=== PATIENT | male | born 1940 | race African-American/Black ===

== ENCOUNTER 2017-06-27 17:59 | Emergency (ER) | payer OTHER ==
[~2017-06-27] VITALS: Ht 182.9 cm; Wt 80.3 kg
[2017-06-27 18:49] LABS: ABSOLUTE NEUTROPHILS 7.4 thou/uL (1.4-8.2); BASOPHILS 0.7 % (0.0-2.0); EOSINOPHILS 1.3 % (0.0-3.0); HEMATOCRIT 47.9 % (42.0-52.0); HEMOGLOBIN 16.6 gm/dL (14.0-18.0); LYMPHOCYTES 19.5 % (24.0-44.0); MCH 33.3 pg (26.0-34.0); MCHC 34.7 g/dL (28.0-37.0); MCV 96.1 fL (80.0-100.0); MONOCYTES 10.4 % (1.0-8.0); PLATELET COUNT 236 thou/uL (150-400); POLYS 68.1 % (36.0-66.0); RBC 4.99 mil/uL (4.50-6.00); RDW 14.1 % (10.5-14.5); WBC 10.9 thou/uL (4.0-11.0)
[2017-06-27 19:00] LABS: CALCIUM 9.7 mg/dL (8.5-10.1); CREATININE 1.1 mg/dL (0.7-1.3); POTASSIUM 3.8 mmol/L (3.5-5.1)
[2017-06-27 19:07] LABS: ALBUMIN 3.4 g/dL (3.4-5.0); DIRECT BILIRUBIN 0.1 mg/dL (<0.1-0.3); TOTAL BILIRUBIN 0.5 mg/dL (<0.1-1.0); TOTAL PROTEIN 7.1 g/dL (6.4-8.2)
[2017-06-27 19:29] LABS: URINE BILIRUBIN NEGATIVE (Negative); URINE BLOOD TRACE (Negative); URINE CLARITY CLEAR; URINE COLOR YELLOW; URINE GLUCOSE-RANDOM* NEGATIVE (Negative); URINE KETONES NEGATIVE (Negative); URINE LEUKOCYTES-REFLEX NEGATIVE (Negative); URINE NITRITE-REFLEX NEGATIVE (Negative); URINE PROTEIN (DIPSTICK) NEGATIVE (Negative)
[2017-06-27] MEDS ORDERED: ACETAMINOPHEN-1 EAC1 PO (19:33)
[2017-06-27] MEDS ORDERED: TYLENOL325 MG PO (19:33)
[2017-06-27] MEDS ORDERED: AMLODIPINE BESY10 MG PO (19:35)
[2017-06-27] MEDS ORDERED: LIPITOR10 MG PO (19:35)
[2017-06-27] MEDS ORDERED: VITAMINC500 PO (19:35)
[2017-06-27] MEDS ORDERED: TESSALON PERLE100 MG PO (19:36)
[2017-06-27] MEDS ORDERED: CARBIDOPA-LEVO1 EAC9 PO (19:36)
[2017-06-27] MEDS ORDERED: VITAMIN D1000 UNI1 PO (19:37)
[2017-06-27] MEDS ORDERED: ZYRTEC10 MG PO (19:37)
[2017-06-27] MEDS ORDERED: FLEXERIL PO (19:38)
[2017-06-27] MEDS ORDERED: DOCUSATE SODIU100 MG PO (19:40)
[2017-06-27] MEDS ORDERED: FOLIC ACID1 MG PO (19:40)
[2017-06-27] MEDS ORDERED: FLONASE 0.05%50 MCG NASAL (19:40)
[2017-06-27] MEDS ORDERED: GABAPENTIN 100100 MG PO (19:41)
[2017-06-27] MEDS ORDERED: LANTUS100 UNIT/M SUBQ (19:42)
[2017-06-27] MEDS ORDERED: HUMALOG100 UNIT/1 SUBQ (19:43)
[2017-06-27] MEDS ORDERED: LAMICTAL100 MG PO (19:44)
[2017-06-27] MEDS ORDERED: PROTONIX40 M1 PO (19:44)
[2017-06-27] MEDS ORDERED: ANTIVERT25 MG PO (19:44)
[2017-06-27] MEDS ORDERED: NICOTINE TRANSD14 M1 TRANSDERM (19:44)
[2017-06-27] MEDS ORDERED: FLOMAX0.4 MG PO (19:46)
[2017-06-27] MEDS ORDERED: SENOKOT8.6 MG PO (19:46)
[2017-06-27] MEDS ORDERED: PROPRANOLOL 20M20 M1 PO (19:46)
[2017-06-27] MEDS ORDERED: THERA1 EAC1 PO (19:47)
[2017-06-27] MEDS ORDERED: VITAMIN B-1100 M1 PO (19:47)
[2017-06-27] MEDS ORDERED: AMBIEN 5 MG TABL5 M1 PO (19:49)
[2017-06-27] MEDS ORDERED: VENLAFAXIN37.5 MG/1 PO (19:49)
[2017-06-27 22:08] VITALS: BP 118/79
== END 2017-06-27 22:11 ==
LOC: ER 17:59
PROVIDERS: Emergency Medicine
DX: J06.9 Acute upper respiratory infection, unspecified (principal); E78.00 Pure hypercholesterolemia, unspecified; E11.9 Type 2 diabetes mellitus without complications; I10 Essential (primary) hypertension; G20 Parkinson's disease; F17.210 Nicotine dependence, cigarettes, uncomplicated; Z86.73 Personal history of transient ischemic attack (TIA), and cerebral infarction without residual deficits; Z88.0 Allergy status to penicillin; Z88.8 Allergy status to other drugs, medicaments and biological substances

== ENCOUNTER 2017-07-03 19:28 | Inpatient (IN) | payer OTHER ==
[~2017-07-03] VITALS: Ht 152.4 cm; Wt 80.6 kg
--- NOTE | ~2017-07-03 | HC ---
[facility] [place] [address] CONSULTATION Name: UNRULY CORDOVA Room #: 359-P [facility] IN M.R.#: [id number] Admission: 07/03/17 Attend Phys: Miles Hernandez MD Discharge: Date of : 44 Report #: [id number] THIS REPORT FOR: //name// CC: Miles Hernandez [facility] Room 359, [facility]. Patient of Dr. Manuel. SUBJECTIVE: A 76-year-old white male admitted for hypoglycemia, hypothermia and hypokalemia. The patient has a 22-year history of diabetes that was treated orally with glipizide and metformin until approximately 3 weeks ago when he suffered a stroke. Since that time, he has been on sliding scale, lispro insulin as well as apparently 20 units of bedtime Glargine. The patient states control has been "poor" but there is limited information available since he has been in an extended care facility. There is no information on controlled diet or other diabetes parameters. The patient was admitted with hypoglycemia after being unable to take in calories. Insulin has been withdrawn and blood sugars have increased back up into the normal and above normal range. The patient is now being restarted on limited oral feeding as tolerated. Otherwise, there is no endocrine history available. CURRENT MEDICATIONS: Include atorvastatin, tamsulosin, fluticasone, multivitamins, aspirin, amlodipine, pantoprazole, gabapentin, lamotrigine, zolpidem, albuterol, acetaminophen, carbidopa, ondansetron and insulin, which has not yet been administered. The patient is currently receiving IV saline. OBJECTIVE: LABORATORY DATA: Glucose which was initially in the 30s is now increased to the most recent value of 214. Other lab is as per chart. PHYSICAL EXAMINATION: GENERAL: Well-nourished, well-developed 76-year-old white male in no acute distress. The patient is alert and oriented x 3. His speech is slightly slurred, but able to be understood. VITAL SIGNS: He is reported to be 6 feet in height, weight is as recorded. The patient is afebrile, heart rate 88 and regular, blood pressure 140/90. SKIN: Shows slightly decreased turgor. EYES: PERRL. CHEST: Clear. HEART: Regular rhythm without murmurs, rubs or gallops. ABDOMEN: Benign. Bowel sounds active. EXTREMITIES: Show no edema, cyanosis or clubbing. Peripheral pulses 2+ and equal bilaterally. ASSESSMENT: 1. Diabetes mellitus with recent hypoglycemia due to decreased caloric intake. [address] [address] CONSULTATION Name: UNRULY CORDOVA Room #: 359-P [facility] IN M.R.#: [id number] Admission: 07/03/17 Attend Phys: Miles Hernandez MD Discharge: Date of : 44 Report #: [id number] 2. Insulin resistance and hyperinsulinemia. PLAN: Will evaluate prior control with hemoglobin A1c and fructosamine and evaluate whether the patient is making endogenous insulin with C-peptide. Given that the patient was on oral therapy until several weeks ago, it is highly likely that he still makes sufficient endogenous insulin to be improved with addition of oral therapy, will then regulate therapy as intake returns to normal in an effort to stabilize glucose control into the appropriate range. Thank you very much for this consultation. I will continue to follow the patient with you for management of diabetes mellitus. <ELECTRONICALLY SIGNED> By: Neftali Lopez MD 07/04/17 1712 [id number] Neftali Lopez MD /nt
--- NOTE | ~2017-07-03 | EKG ---
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
[~2017-07-03 19:28] MED LIST: ACETAMINOPHEN-1 EAC1 PO; AMBIEN 5 MG TABL5 M1 PO; AMLODIPINE BESY10 MG PO; ANTIVERT25 MG PO; CARBIDOPA-LEVO1 EAC9 PO; DOCUSATE SODIU100 MG PO; FLEXERIL PO; FLOMAX0.4 MG PO; FLONASE 0.05%50 MCG NASAL; FOLIC ACID1 MG PO; GABAPENTIN 100100 MG PO; HUMALOG100 UNIT/1 SUBQ; LAMICTAL100 MG PO; LANTUS100 UNIT/M SUBQ; LIPITOR10 MG PO; NICOTINE TRANSD14 M1 TRANSDERM; PROPRANOLOL 20M20 M1 PO; PROTONIX40 M1 PO; SENOKOT8.6 MG PO; TESSALON PERLE100 MG PO; THERA1 EAC1 PO; TYLENOL325 MG PO; VENLAFAXIN37.5 MG/1 PO; VITAMIN B-1100 M1 PO; VITAMIN D1000 UNI1 PO; VITAMINC500 PO; ZYRTEC10 MG PO
[2017-07-03 19:30] VITALS: BP 135/91
[2017-07-03] MEDS ORDERED: ASPIR 8181 MG PER TUBE (20:00)
[2017-07-03] MEDS ORDERED: VITAMIN D31000 UNIT PER TUBE (20:02)
[2017-07-03 20:36] LABS: ABSOLUTE NEUTROPHILS 9.5 thou/uL (1.4-8.2); BASOPHILS 0.5 % (0.0-2.0); EOSINOPHILS 0.5 % (0.0-3.0); HEMATOCRIT 48.2 % (42.0-52.0); LYMPHOCYTES 9.2 % (24.0-44.0); MCH 32.7 pg (26.0-34.0); MCHC 33.3 g/dL (28.0-37.0); MCV 98.4 fL (80.0-100.0); MONOCYTES 6.9 % (1.0-8.0); PLATELET COUNT 136 thou/uL (150-400); POLYS 82.9 % (36.0-66.0); RDW 13.5 % (10.5-14.5); WBC 11.5 thou/uL (4.0-11.0)
[2017-07-03 20:46] LABS: CALCIUM 7.2 mg/dL (8.5-10.1); CREATININE 1.1 mg/dL (0.7-1.3); POTASSIUM 3.3 mmol/L (3.5-5.1)
[2017-07-03 21:30] LABS: URINE BILIRUBIN NEGATIVE (Negative); URINE BLOOD NEGATIVE (Negative); URINE CLARITY CLEAR; URINE COLOR YELLOW; URINE GLUCOSE-RANDOM* 2+ (Negative); URINE KETONES NEGATIVE (Negative); URINE LEUKOCYTES NEGATIVE (Negative); URINE NITRITE NEGATIVE (Negative); URINE PROTEIN (DIPSTICK) NEGATIVE (Negative); URINE SPECIFIC GRAVITY 1.015 (1.005-1.035)
[2017-07-03 21:37] VITALS: BP 158/87
[2017-07-03 21:57] VITALS: BP 120/74
[2017-07-04 00:10] VITALS: BP 143/87
[2017-07-04 01:44] LABS: HEMOGLOBIN 16.7 gm/dL (14.0-18.0); MCH 32.8 pg (26.0-34.0); MCHC 33.4 g/dL (28.0-37.0); MCV 98.1 fL (80.0-100.0); RBC 5.1 mil/uL (4.50-6.00); RDW 13.6 % (10.5-14.5); WBC 8.5 thou/uL (4.0-11.0)
[2017-07-04 01:47] LABS: CREATININE 1.3 mg/dL (0.7-1.3); POTASSIUM 4.1 mmol/L (3.5-5.1)
[2017-07-04 01:59] LABS: CALCIUM 9.3 mg/dL (8.5-10.1)
[2017-07-04 03:50] VITALS: BP 127/82
[2017-07-04 08:28] VITALS: BP 144/95
[2017-07-04 17:42] VITALS: BP 135/85
[2017-07-04 20:00] VITALS: BP 137/95
[2017-07-05 01:08] LABS: GLYCOHEMOGLOBIN (HGB A1C) 7.9 % (4.8-5.6)
[2017-07-05 08:30] VITALS: BP 152/84
[2017-07-05 16:32] VITALS: BP 151/84
[2017-07-05 19:03] VITALS: BP 105/65
[2017-07-06 08:33] VITALS: BP 135/81
[2017-07-06 13:20] VITALS: BP 132/82
[2017-07-06 20:00] VITALS: BP 144/64
[2017-07-07 07:10] VITALS: BP 169/100
[2017-07-07 11:42] VITALS: BP 158/95
[2017-07-07] MEDS ORDERED: MIRALAX17 GM PO (13:16)
[2017-07-07 16:00] VITALS: BP 148/82
== END 2017-07-07 16:44 | DRG 637 ==
LOC: ER 19:28 → 3W 21:22 → EROBS 21:22 → 3W 22:02
PROVIDERS: Emergency Medicine; Internal Medicine Endocrinology, Diabetes & Metabolism; Nurse Practitioner Family
DX: E11.649 Type 2 diabetes mellitus with hypoglycemia without coma (principal); E43 Unspecified severe protein-calorie malnutrition; T68.XXXA Hypothermia, initial encounter; G20 Parkinson's disease; I10 Essential (primary) hypertension; E78.00 Pure hypercholesterolemia, unspecified; E87.6 Hypokalemia; E88.81 Metabolic syndrome and other insulin resistance; E78.5 Hyperlipidemia, unspecified; F12.90 Cannabis use, unspecified, uncomplicated; R29.810 Facial weakness; R13.10 Dysphagia, unspecified; R33.9 Retention of urine, unspecified; G47.00 Insomnia, unspecified; J31.0 Chronic rhinitis; K59.00 Constipation, unspecified; Z86.73 Personal history of transient ischemic attack (TIA), and cerebral infarction without residual deficits; Z88.0 Allergy status to penicillin; Z88.8 Allergy status to other drugs, medicaments and biological substances; Z87.891 Personal history of nicotine dependence; Z93.1 Gastrostomy status; Z79.82 Long term (current) use of aspirin; Z79.899 Other long term (current) drug therapy
CPT/HCPCS: 10879